=== PATIENT | male | born 1990 | race Caucasian/White ===

== ENCOUNTER → 2024-02-15 06:29 | Day surgery (SDC) | payer BC, SELFPAY | LOC: GI 06:29 | PROVIDERS: ATTENDING PHYSICIAN Internal Medicine Gastroenterology | DX: R93.3 Abnormal findings on diagnostic imaging of other parts of digestive tract (principal); K57.30 Diverticulosis of large intestine without perforation or abscess without bleeding; K64.8 Other hemorrhoids; K22.89 Other specified disease of esophagus; R11.0 Nausea; K31.89 Other diseases of stomach and duodenum; K20.80 Other esophagitis without bleeding | CPT/HCPCS: 45380; 43239; 88305; 88342 ==

== ENCOUNTER → 2024-07-29 08:47 | Outpatient (REF) | payer BC, SELFPAY | LOC: RAD 08:47 | PROVIDERS: ATTENDING PHYSICIAN Internal Medicine Gastroenterology; FAMILY PHYSICIAN Physician Assistant Medical | DX: K76.0 Fatty (change of) liver, not elsewhere classified (principal) | CPT/HCPCS: 76700 ==

== ENCOUNTER 2025-01-09 05:41 | Emergency (ER) | payer BC, SELFPAY ==
[2025-01-09 05:43] VITALS: BP 152/90
[2025-01-09 06:08] LABS: % Basophils 0.6 % (0-2); % Eosinophils 2.5 % (0-6); % Immature Granulocytes 0.2 % (0-0.5); % Lymphocytes 29.7 % (20.5-51.1); % Monocytes 9.4 % (1.7-9.3); % Neutrophils 57.6 % (42.2-75.2); Absolute Basophils 0.1 10^3/uL (0-0.2); Absolute Eosinophils 0.2 10^3/uL (0-0.7); Absolute Lymphocytes 2.6 10^3/uL (1.2-3.4); Absolute Monocytes 0.8 10^3/uL (0.1-0.6); Hematocrit 46.6 % (39.0-52.0); Hemoglobin 16.2 g/dL (13.0-18.0); Mean Corp Hgb Conc. 34.8 g/dL (33.0-37.0); Mean Corpuscular Hgb 30.8 pg (27.0-31.0); Mean Corpuscular Volume 88.6 fL (80.0-94.0); Mean Platelet Volume 10.1 fL (7.4-10.4); Nucleated Red Blood Cells % 0 % (-); Platelet Count 255 10^3/uL (130-400); Red Blood Cell Count 5.26 10^6/uL (4.70-6.10); Red Cell Dist. Width 12.3 % (11.5-14.5); White Blood Cell Count 8.8 10^3/uL (4.8-10.8)
[2025-01-09 06:17] LABS: Albumin 4.4 g/dl (3.5-5.0)
[2025-01-09 06:22] LABS: ALT (SGPT) 56 U/L (0-50); AST (SGOT) 31 U/L (17-59); Alkaline Phosphatase 89 U/L (38-126); Blood Urea Nitrogen 16 mg/dl (9-20); Calcium 9.4 mg/dl (8.4-10.2); Carbon Dioxide 24 mmol/L (22-30); Chloride 106 mmol/L (98-107); Glucose 102 mg/dl (70-99); Lipase 99 U/L (23-300); Potassium 4.2 mmol/L (3.5-5.1); Sodium 139 mmol/L (135-145); Total Bilirubin 0.6 mg/dl (0.2-1.3); Total Protein 7.4 g/dl (6.3-8.2); eGFR > 60.00
--- NOTE | 2025-01-09 07:37 | EDRN ---
Oc LOUIE in room w/ pt at this time.
--- NOTE | 2025-01-09 07:57 | ED.GENMED ---
History of Present Illness
General
Chief Complaint: Abdominal Symptoms
Source: patient
Exam Limitations: none
Time Seen by Provider: 01/09/25 07:33
Nursing documentation reviewed up to this point in time: agreed with
History of Present Illness
History of Present Illness:
35-year-old male with past medical history of GERD presenting to the emergency department today with concerns of initially worsening heartburn over the past few days. He claims that he does deal with this chronically and has had some degree of
heartburn for years at this point over the past few days it seems to be worsened now some discomfort to the upper abdomen with some associated nausea but no vomiting. Has been able to tolerate by mouth. Has been evaluated extensively by GI and has
a gastric emptying study. He has been taking Protonix, famotidine and Carafate without relief.
Past History
Past History
ED Past Medical History: GERD
ED Past Surgical History: Orthopedic and Other (Hernia repair, testicular torsion repair)
Social History
Tobacco: Non-smoker
Alcohol: Occasional
Drug: None
Personal: Single
Living: with family
Employment: Employed
Review of Systems
Review of Systems
Allergies reviewed?: Yes
All Other Systems: ROS reviewed and negative except as documented in HPI and ROS
Phy Exam
Physical Exam
Physical Exam:
GENERAL: Alert , in no apparent distress
EYE: pupils equal and reactive
NECK: Supple, no significant adenopathy.
ENT: o/p clr, mmm.
CARDIAC: Regular rate and rhythm .
LUNGS: Clear breath sounds bilaterally, no acute respiratory distress, no wheezes/rales/rhonchi
ABDOMEN: Soft, without focal tenderness, no r/g, no cvat
NEUROLOGICAL: Alert and oriented, no focal neuro deficits
SKIN: Warm and dry, skin intact.
MUSCULOSKELETAL: No edema, well perfused.
PSYCH: Normal and appropriate interaction.
Course
Orders/Labs/Results
Orders:
Orders
01/09/25 05:50
CBC/With Diff [Complete Blood Count/With Diff] Urgent
Comprehensive Metabolic Panel Urgent
Lipase Urgent
01/09/25 07:54
Mag Hydrox/Al Hydrox/Simeth [Maalox] 30 ml Phenobarb/Hyoscy/Atropine/Scop [] 10 ml Viscous Lidocaine 2% [Xylocaine Viscous Cup] 10 ml PO NOW
01/09/25 08:03
Mag Hydrox/Al Hydrox/Simeth [Maalox] 30 ml .ROUTE .STK-MED ONE
Phenobarb/Hyoscy/Atropine/Scop [] 10 ml .ROUTE .STK-MED ONE
01/09/25 08:04
Viscous Lidocaine 2% [Xylocaine Viscous Cup] 15 ml .ROUTE .STK-MED ONE
Abnormal Lab Results
01/09/25
05:50
Absolute Monos (auto) 0.8 H 10^3/uL
(0.1-0.6)
Monocytes % 9.4 H %
(1.7-9.3)
Glucose 102 H mg/dl
(70-99)
ALT 56 H U/L
(0-50)
01/09/25 05:50
01/09/25 05:50
Vital Signs
Initial and Last Documented VS:
Initial Vital Signs
Temp Pulse Resp BP Pulse Ox
98.2 F 66 20 152/90 97
01/09/25 05:43 01/09/25 05:43 01/09/25 05:43 01/09/25 05:43 01/09/25 05:43
Last Documented Vital Signs
Temp Pulse Resp BP Pulse Ox
98.2 F 66 20 152/90 97
01/09/25 05:43 01/09/25 05:43 01/09/25 05:43 01/09/25 05:43 01/09/25 05:43
MDM/Problems Addressed
MDM/Problems Addressed:
35-year-old male presenting to the emergency department today with concerns of ongoing persisting reflux symptoms burning discomfort of his upper abdomen now some nausea and without vomiting. Has had longstanding symptoms that are similar. Does
follow-up with GI. Has been taking outpatient medications without relief. Here labs are unremarkable does have an ALT elevation but this is chronic and not significantly different from usual. No significant reproducible discomfort to the abdomen
making surgical process very unlikely. No evidence of pancreatitis lipase is normal. Patient was given a GI cocktail but otherwise will follow-up closely with his GI doctor. The GI front office assistant was messaged about close follow-up. Return
precautions given.
*Critical Care Note
Total Time (30-74mins, 75-104mins- exclusive of procedures): Not Applicable
ED Attending Note
-
Portions of this chart may have been created with voice recognition software.� Occasional wrong word or��sound alike� substitutions may have occurred due to the inherent limitations of voice recognition software.
Discharge Plan
Departure
Patient Disposition: Home (Routine Discharge)
Date of Disposition: 01/09/25
Time of Disposition: 08:35
Patient with high blood pressure during this ER visit?: No
Condition: Good
Covid-19: Not Applicable
Discharge Problem:
Upper gastrointestinal distress
Instructions: Abdominal Pain
Prescriptions:
No Action
doxycycline hyclate 100 MG capsule
100 mg PO BID
oxycodone-acetaminophen 5 MG/325 MG tablet
1 tab PO Q6HPRN PRN (Reason: pain) Qty: 14 0RF
diclofenac sodium 25 MG tablet,delayed release (DR/EC)
25 mg PO BIDPRN PRN (Reason: pain) Qty: 20 0RF
ondansetron 4 mg tablet,disintegrating
4 mg PO Q8H PRN (Reason: nausea and vomiting) Qty: 10 0RF
ondansetron HCl 4 mg tablet
4 mg PO Q8H PRN (Reason: nausea and vomiting) Qty: 10 0RF
Referrals:
Hemple,Je, PA-C [Family Provider] -
Activity Restrictions/Additional Instructions:
You came to the emergency department today with concerns of ongoing GI symptoms. Please follow closely with your GI doctor. Return for any worsening, new or concerning symptoms.
Interventions
Interventions:
*Risk Screen - Suicide Last Done: 01/09/25 05:43
*General Assessment Last Done: 01/09/25 08:09
*Neglect/Abuse Screening Last Done: 01/09/25 05:43
ED- Fall Risk Assessment Last Done: 01/09/25 08:09
*ED COVID-19 Vaccine History Last Done: 01/09/25 08:09
XI-Icklbm-Ampjdpsiex Assessment Last Done: 01/09/25 08:09
Discharge Date and Time
Print Language: INDIAN
[2025-01-09 08:09] VITALS: BMI 29.8
[2025-01-09] MEDS: MAALOX 50 PO (08:13)
[2025-01-09 08:35] VITALS: BP 117/61
== END 2025-01-09 08:52 | disposition home or self-care (01) ==
LOC: EMR 05:41
PROVIDERS: Emergency Medicine; EMERGENCY PHYSICIAN Emergency Medicine; FAMILY PHYSICIAN Physician Assistant Medical
DX: K30 Functional dyspepsia (principal)
CPT/HCPCS: 99283; 80053; 83690; 85025

== ENCOUNTER → 2025-01-23 07:14 | Outpatient (REF) | payer BC, SELFPAY | LOC: RAD 07:14 | PROVIDERS: ATTENDING PHYSICIAN Internal Medicine Gastroenterology; FAMILY PHYSICIAN Physician Assistant Medical | DX: R11.0 Nausea (principal) | CPT/HCPCS: 78264; A9541 ==

== ENCOUNTER → 2025-06-26 08:32 | Outpatient (REF) | payer BC, SELFPAY | LOC: HWRAD 08:32 | PROVIDERS: ATTENDING PHYSICIAN Internal Medicine Gastroenterology; FAMILY PHYSICIAN Physician Assistant Medical | DX: K76.0 Fatty (change of) liver, not elsewhere classified (principal) | CPT/HCPCS: 76700 ==